=== PATIENT | female | born 1985 | race Caucasian/White ===

== ENCOUNTER 2016-10-02 22:08 | Observation (INO) | payer OTHER ==
[2016-10-02 22:53] LABS: ABSOLUTE IMMATURE GRANULOCYTES 0.19 10^3/uL (0.00-0.10); ADD DIFF? NO; ADD MORPH? NO; ADD SCAN? NO; ATYPICAL LYMPHOCYTE FLAG 0 (0-99); FRAGMENT RBC FLAG 50 (0-99); HEMATOCRIT 39.7 % (38.0-47.0); HEMOGLOBIN 13.5 g/dL (12.6-16.3); LEFT SHIFT FLG 10 (0-99); LIPEMIA HEMOLYSIS FLAG 90 (0-99); MEAN CELL HEMOGLOBIN 31.8 pg (27.9-34.1); MEAN CELL VOLUME 93.6 fL (81.5-99.8); MEAN PLATELET VOLUME 10.3 fL (8.7-11.7); PLATELET CLUMPS FLAG 20 (0-99); PLATELET COUNT 249 10^3/uL (150-400); RED BLOOD CELL COUNT 4.24 10^6/uL (4.18-5.33); RED CELL DISTRIBUTION WIDTH 12.9 % (11.5-15.2)
[2016-10-02 22:55] LABS: COLOR COLORLESS; LEUKOCYTE ESTERASE,URINE NEGATIVE (NEGATIVE); NITRITE,URINE NEGATIVE (NEGATIVE)
--- NOTE | 2016-10-03 12:57 | GCON ---
[f rep st] CONSULTATION DATE OF CONSULTATION: 10/03/2016 HISTORY OF PRESENT ILLNESS: The patient is a 31-year-old 1, para 0, who is 37 and 4/7 weeks ' gestation, who came in for decreased movement and right lower quadrant pain. Patient had be en feeling good movement the day before but had a very active day. She developed significant right lower quadrant pain and some right back pain. She states that it was constant and intense. She den ied any loss of fluid, vaginal bleeding, or nausea, vomiting, fevers, or chills. The pain was const ant, it was not coming and going. She had good movement. Patient was brought in for evaluati on. She had a negative urinalysis. heart tracing is appropriate for gestational age and clara gory 1. She was noted to have occasional contractions on the monitor which did resolve with p.o. hy dration. LABS: Her urinalysis was negative. Her white blood count was elevated at 19.4 but her hemoglobin w as 13.5, hematocrit was 39.7, and her platelets were 249. ASSESSMENT AND PLAN: I did manage the patient over the phone, I did not come in and evaluate the pa tient. The patient was given p.o. hydration. She was reassured by the status, and her pain i n the right lower quadrant had resolved. The nurse did pass along instructions to discuss round lig ament pain and appendicitis warning signs due to the elevated white count and precautions an d kick counts. Patient was instructed to follow up in our office as scheduled or sooner in the next week if indicated. If that pain increases or any fevers or chills develop or nausea, vomiting, or diarrhea, patient is to contact us. The patient was then discharged to home. /[id number]/MODL
== END 2016-10-02 23:29 | disposition home or self-care (01) ==
LOC: FLD 22:08
PROVIDERS: ADMIT Obstetrics & Gynecology; ATTEND Obstetrics & Gynecology
DX: O36.8130 Decreased fetal movements, third trimester, not applicable or unspecified (principal); O99.113 Other diseases of the blood and blood-forming organs and certain disorders involving the immune mechanism complicating pregnancy, third trimester; O26.893 Other specified pregnancy related conditions, third trimester; R10.31 Right lower quadrant pain; M54.9 Dorsalgia, unspecified; D72.829 Elevated white blood cell count, unspecified; Z3A.37 37 weeks gestation of pregnancy
CPT/HCPCS: G0378

== ENCOUNTER 2016-12-29 06:48 | Observation (INO) | payer OTHER ==
--- NOTE | 2016-12-29 14:23 | SOAPPROG ---
SOAP Progress Note Assessment/Plan: Assessment: [id number] with IUP@ 40-1 (L/6) no evidence of labor GBS+ Cat 1 FHR tracing Plan: d/c home at this time will return with increasing contractions FKC and labor prec discussed 12/29/16 14:19 Subjective: pt doing well, presents to L&D with complaints of contractions since 2199, she states she is having contractions q 4-5 min, but she is able to breathe and talk through them. She denies any LOF, VB. She reports +FM. Objective: Exam: VSS HEENT: normocephalic, atraumatic Abd: soft, nontender, nondistended, gravid Pelvic: CE, per Elia Frank CNM, -/ Extremities: trace edema, negative yoel's sign Neuro: grossly normal - Time Spent With Patient Time Spent With Patient: approx 45 min was spent with this pt; of that time approx 30 min was spent on direct counseling or coordination of care. - Pending Discharge Pending Discharge Within 24 Hours: No Physical Exam - Physical Exam General Appearance: WD/WN, alert, no apparent distress EENT: PERRL/EOMI Neck: non-tender, supple Abdomen: non-tender, soft Pelvic Exam: deferred Skin: normal color, warm/dry Extremities: non-tender Neuro/Psych: no motor/sensory deficits, alert, normal mood/affect, oriented x 3 ICD10 Worksheet Patient Problems: Problems Problem Status Onset Labor and delivery affected by breech presentation Acute Labor, false Acute - ICD10 Problem Qualifiers (1) Labor and delivery affected by breech presentation (2) Labor, false
== END 2016-12-29 07:49 | disposition home or self-care (01) ==
LOC: FLD 06:48
PROVIDERS: ADMIT Advanced Practice Midwife; ATTEND Obstetrics & Gynecology
DX: O47.03 False labor before 37 completed weeks of gestation, third trimester (principal); O99.824 Streptococcus B carrier state complicating childbirth; Z3A.40 40 weeks gestation of pregnancy
CPT/HCPCS: G0378

== ENCOUNTER 2016-12-29 21:13 | Inpatient (IN) | payer OTHER ==
[2016-12-29] MEDS ORDERED: TERBUTALINE SULFATE 1 MG/ML VIAL IV PRN (23:21)
[2016-12-29] MEDS ORDERED: OLIVE OIL 118 ML BTL MISC PRN (23:21)
[2016-12-29] MEDS ORDERED: EPSOM SALT 454 GM TP PRN (23:21)
[2016-12-29] MEDS ORDERED: OXYTOCIN 20 UNIT in LR 1,000 ML IV PRN (23:21)
[2016-12-29] MEDS ORDERED: LR 1,000 ML IV PRN (23:21)
[2016-12-29] MEDS ORDERED: IBUPROFEN 600 MG TAB PO PRN (23:21)
--- NOTE | 2016-12-29 23:21 | PDGENHP ---
History & Physical Chief Complaint: contractions since last night @ 2200 History of Present Illness: This is a 31yo with IUP@ 40-1wks that presents to L&D with c/o contractions since last night @ 2200. She reports having increasing pain with contractions, rating pain 6/10. She denies any LOF, VB. She reports +FM. She denies any headaches, visual changes, epigastric pain. Pertinent Past, Social, Family History: PMH: RA, h/o ITP (h/o blood transfusion) . Social: denies any alcohol, tobacco, or drug use. Surgical: oral surgery. Family: +heart disease, +HTN, +DM
[2016-12-29] MEDS ORDERED: PENICILLIN G POTASSIUM 5,000,000 UNIT in D5W 150 ML IV ONE (23:29)
--- NOTE | 2016-12-29 23:40 | PDGENHP ---
History and Physical - Chief Complaint Patient doing well, reports contractions since 2200 (12/28/16) - History of Present Illness This is a [id number] with IUP @ 40-1wks with complaints of contractions since last night at 2200. She states they have increased in intensity. She is now rating them 6/10. She denies any alleviating factors. She denies any LOF, VB. She reports +FM. She denies any headaches, visual changes, epigastric pain. History Information - Allergies/Home Medication List Allergies/Adverse Reactions: No Known Allergies Allergy (Unverified 10/02/16 22:19) Home Medications: Multi Tablet 1 tab PO DAILY 12/29/16 [Last Taken 12/29/16] I have personally reviewed and updated: family history, medical history, social history, surgical history - Past Medical History Additional medical history: RA - Surgical History Additional surgical history: oral surgery - Family History Positive for: cancer, diabetes type I, vascular disease, CAD, hypertension - Social History Smoking Status: Never smoked Alcohol Use: None Drug Use: None Review of Systems Review of Systems: ROS: 10pt was reviewed & negative except for what was stated in HPI & below Constitutional: Reports: no symptoms EENMT: Reports: no symptoms Cardiac: Reports: no symptoms Respiratory: Reports: no symptoms Gastrointestinal: Reports: no symptoms Genitourinary: Reports: no symptoms Muscolosketal: Reports: no symptoms Skin: Reports: no symptoms Neurological: Reports: no symptoms Hematologic/Lymphatic: Reports: no symptoms Physical Exam Physical Exam: Constitutional: no apparent distress, appears nourished Eyes: EOMI Ears, Nose, Mouth, Throat: moist mucous membranes, hearing normal, ears appear normal Cardiovascular: regular rate and rhythym, no murmur, rub, or gallop Respiratory: no respiratory distress, no rales or rhonchi, clear to auscultation Gastrointestinal: soft, non-tender abdomen Skin: warm, normal color Neurologic: AAOx3 Psychiatric: interacting appropriately, not anxious Assessment & Plan Assessment: [id number] with IUP@ 40-1wks Early labor GBS+ Cat 2 FHR tracing Plan: Admit to L&D pain management/HELEN (per pt request) IV/labs/fluid bolus/abx reassess post HELEN Dr Triana aware of FHR tracing
[2016-12-29] MEDS ORDERED: fentaNYL 2MCG/ML/BUP 0.1% RTU 100 ML BAG EP ONE (23:45)
[2016-12-29] MEDS ORDERED: PHENYLEPHRINE HCL 100 MCG/ML SYR ONE (23:46)
[2016-12-29] MEDS ORDERED: fentaNYL 100 MCG/2 ML INJ ONE (23:46)
[2016-12-29] MEDS ORDERED: BUPIVACAINE 0.25% 30 ML SDV ONE (23:46)
[2016-12-29 23:47] LABS: % IMMATURE GRANULYOCYTES 1.1 % (0.0-1.1); ABSOLUTE IMMATURE GRANULOCYTES 0.29 10^3/uL (0.00-0.10); ADD DIFF? NO; ADD MORPH? NO; ADD SCAN? NO; ATYPICAL LYMPHOCYTE FLAG 0 (0-99); FRAGMENT RBC FLAG 0 (0-99); HEMATOCRIT 43.9 % (38.0-47.0); HEMOGLOBIN 15.4 g/dL (12.6-16.3); LEFT SHIFT FLG 10 (0-99); LIPEMIA HEMOLYSIS FLAG 90 (0-99); MEAN CELL HEMOGLOBIN CONCENTR. 35.1 g/dL (32.4-36.7); MEAN PLATELET VOLUME 11.5 fL (8.7-11.7); PLATELET CLUMPS FLAG 10 (0-99); PLATELET COUNT 183 10^3/uL (150-400); RED BLOOD CELL COUNT 4.67 10^6/uL (4.18-5.33); RED CELL DISTRIBUTION WIDTH 13.2 % (11.5-15.2)
--- NOTE | 2016-12-30 01:09 | PREANESOB ---
Obstetric Pre-Anesthesia Info - General Info Proposed Procedure: Labor and delivery. : 1 Para: 0 WBD: 40 - Info Monitors: External FHR Pattern: Reassuring - Labor Status Cervical Dilation per last OB SVE: 2 PIH: No Indications for Labor Analgesia: Augmentation of Labor, Pain Control Labor Epidural: Proposed Anesthesia ROS: Rheumatoid arthritis. History of ITP. Prior general anesthesia. Allergies/Adverse Reactions: Allergy/AdvReac Type Severity Reaction Status Date / Time No Known Allergies Allergy Unverified 10/02/16 22:19 Home Medications: Medication Instructions Recorded Multi Tablet 1 tab PO DAILY 12/29/16 Visit Medications: Generic Name Dose Route Start Last Admin Trade Name Freq PRN Reason Stop Dose Admin Lactated Ringer's 1,000 mls @ 0 mls/hr 12/29/16 23:21 Lr IV 06/27/17 23:20 PRN PRN SEE PROTOCOL CONDITIONS Protocol Per Protocol Oxytocin 20 unit/ Lactated 1,002 mls @ 150 mls/hr 12/29/16 23:21 Ringer's IV PRN PRN Post- bleeding Penicillin G Potassium 2,500, 155 mls @ 155 mls/hr 12/30/16 03:30 000 unit/ Dextrose IV 01/29/17 03:29 Q4H JENNA Protocol Ibuprofen 600 mg 12/29/16 23:21 Motrin PO 06/27/17 23:20 Q6HRS PRN post , inflammation Magnesium Sulfate 454 gm 12/29/16 23:21 Epsom Salt TP 06/27/17 23:20 Q1H PRN perineal discomfort Sutton Oil 118 ml 12/29/16 23:21 Sweet Oil MISC 06/27/17 23:20 ONCE PRN perineal massage Terbutaline Sulfate 0.25 mg 12/29/16 23:21 Brethine IV 06/27/17 23:20 ONCE PRN Tachysystole Discontinued Medications Generic Name Dose Route Start Last Admin Trade Name Freq PRN Reason Stop Dose Admin Bupivacaine HCl Confirm 12/29/16 23:46 Sensorcaine 0.25% Sdv Administered 12/29/16 23:47 Dose 30 ml .ROUTE .STK-MED ONE Fentanyl Confirm 12/29/16 23:46 Sublimaze Administered 12/29/16 23:47 Dose 100 mcg .ROUTE .STK-MED ONE Fentanyl/Bupivacaine HCl Confirm 12/29/16 23:45 Fentanyl/Bupivacaine/Ns 2 Mcg/Ml 0.1% (Premix Administered 12/29/16 23:46 Dose 100 ml EP .STK-MED ONE Penicillin G Potassium 5,000, 160 mls @ 160 mls/hr 12/29/16 23:29 12/30/16 00 :00 000 unit/ Dextrose IV 12/30/16 00:28 160 mls ONCE ONE Administration Protocol Phenylephrine HCl Confirm 12/29/16 23:46 Neosynephrine Administered 12/29/16 23:47 Dose 1,000 mcg .ROUTE .STK-MED ONE - Anesthesia History Response to Local Anesthetics: Normal Anesthesia & Operative History: No Prior Problems Family Anesthesia History: Negative - Social History Substance Use/Abuse: Denies - Focused Exam Blood Pressure: 130/70 Heart Rate: 100 Height/Weight (Nursing): Height 170.18 cm Weight 86.183 kg Physical Exam: Within normal limits. ASA Status: II Labs: 12/29/16 23:15 - Plan Anesthetic Plan: HELEN Consent Signed and on Chart: Yes Patient/Guardian Understands and Agrees to Plan: Yes Urgent/Emergent Case: Ruth rivero completed preop but documented later for safe timely pt care
--- NOTE | 2016-12-30 01:11 | POSTANESTH ---
Post Anesthetic Evaluation Cardiovascular Status: Normal, Stable, Similar to Pre-Op Cond, Tx Over/Under Hydration Respiratory Status: Similar to Pre-op Cond. Level of Consciousness/Mental Status: Can Participate in Eval, Alert and Oriented Pain Control: Adequate, Prn Tx Ordered Nausea/Vomiting Control: Adequate, Prn Tx Ordered Complications Possibly Related to Anesthesia: None Noted
[2016-12-30] MEDS ORDERED: PHENYLEPHRINE HCL 100 MCG/ML SYR IVP PRN (01:13)
[2016-12-30] MEDS ORDERED: ONDANSETRON 4 MG/2 ML VIAL IVP PRN (01:13)
[2016-12-30 01:19] LABS: ALANINE AMINOTRANSFERASE 42 IU/L (9-52); ASPARTATE AMINOTRANSFERASE 54 IU/L (14-46); BILIRUBIN-CONJUGATED 0.4 mg/dL (0.0-0.5); BILIRUBIN-UNCONJUGATED 0.6 mg/dL (0.0-1.1); CREATININE 0.6 mg/dL (0.6-1.0); GLOMERULAR FILTRATION RATE > 60; LACTATE DEHYDROGENASE 1235 IU/L (313-618); SPECIMEN HEMOLYSIS 132; URIC ACID 3.6 mg/dL (2.5-6.8)
[2016-12-30] MEDS ORDERED: LR 500 ML IV SCH ×2 (01:30)
[2016-12-30] MEDS ORDERED: fentaNYL 4MCG/ML/BUP 0.0625% R 250 ML EP SCH (01:30)
[2016-12-30] MEDS ORDERED: fentaNYL 2MCG/ML/BUP 0.1% RTU 100 ML EP SCH (01:30)
[2016-12-30] MEDS ORDERED: PENICILLIN G POTASSIUM 2,500,000 UNIT in D5W 150 ML IV SCH (03:30)
--- NOTE | 2016-12-30 04:29 | OBPROG ---
Labor Progress Note Assessment/Plan: Assessment: [id number] with IUP@ 40-2wks Early labor Tachycardia, CAt 2 FHR Tracing suspect chorio GBS+ WBC 25 Plan: Called Dr Chuy Triana- aware of FHR tracing reassess PRN tylenol 650mg PO x 1 dose now cont IV fluids 12/30/16 04:18 12/30/16 06:44 Subjective/Intrapartum Course: 12/30/16 04:20 Pt doing well, resting; comfortable with HELEN; denies any pain Objective: 12/29/16 23:15 12/29/16 23:48 Patient ABO/Rh O POSITIVE 12/30/16 01:31 Uric Acid 3.6 mg/dL (2.5-6.8) 12/29/16 23:48 Total Bilirubin 1.0 mg/dL (0.1-1.4) 12/29/16 23:48 Conjugated Bilirubin 0.4 mg/dL (0.0-0.5) 12/29/16 23:48 Unconjugated Bilirubin 0.6 mg/dL (0.0-1.1) 12/29/16 23:48 AST 54 IU/L (14-46) H 12/29/16 23:48 ALT 42 IU/L (9-52) 12/29/16 23:48 Lactate Dehydrogenase 1235 IU/L (313-618) H 12/29/16 23:48 Temp Pulse Resp BP Pulse Ox 100 130/70 H 12/30/16 01:10 12/30/16 01:10 Oxytocin Orders Assessment - Pre-Induction/Augmentation Assessment Gestational Age: 40 week(s) and 1 day(s) ICD10 Worksheet Patient Problems: Problems Problem Status Onset Labor and delivery affected by breech presentation Acute Labor, false Acute
[2016-12-30] MEDS ORDERED: OXYTOCIN 10 UNIT/ML VIAL ONE (04:52)
[2016-12-30] MEDS ORDERED: MISOPROSTOL 200 MCG TAB ONE (04:54)
[2016-12-30] MEDS ORDERED: AMMONIA AROMATIC 1 EACH AMP IH ONE (04:54)
[2016-12-30] MEDS ORDERED: LIDOCAINE 1% 300 MG/30 ML SDV ONE (04:56)
[2016-12-30] MEDS: ACETAMINOPHEN 325 MG TAB PO PRN ×3 (04:58→23:45)
[2016-12-30] MEDS ORDERED: AMPICILLIN SODIUM 2 GM in NS 100 ML IV SCH ×2 (05:00→18:45)
[2016-12-30] MEDS ORDERED: GENTAMICIN PHARMACY TO DOSE MISC SCH (05:00)
[2016-12-30] MEDS ORDERED: OXYTOCIN 30 UNIT in LR 500 ML IV SCH (05:00)
--- NOTE | 2016-12-30 05:03 | OBPROG ---
Labor Progress Note Assessment/Plan: Assessment: 31 yo G1 @ 40.2 weeks with early labor and suspected IAI Plan: 12/30/16 04:59 Antipyretics, antibiotics, and augmentation initiated. Will consider CD if heart rate does not respond to meds, worsens or no cervical change. NICU has been notified. Subjective/Intrapartum Course: 12/30/16 04:20 Pt doing well, resting; comfortable with HELEN; denies any pain Objective: 12/29/16 23:15 12/29/16 23:48 Patient ABO/Rh O POSITIVE 12/30/16 01:31 Uric Acid 3.6 mg/dL (2.5-6.8) 12/29/16 23:48 Total Bilirubin 1.0 mg/dL (0.1-1.4) 12/29/16 23:48 Conjugated Bilirubin 0.4 mg/dL (0.0-0.5) 12/29/16 23:48 Unconjugated Bilirubin 0.6 mg/dL (0.0-1.1) 12/29/16 23:48 AST 54 IU/L (14-46) H 12/29/16 23:48 ALT 42 IU/L (9-52) 12/29/16 23:48 Lactate Dehydrogenase 1235 IU/L (313-618) H 12/29/16 23:48 Temp Pulse Resp BP Pulse Ox 100 130/70 H 12/30/16 01:10 12/30/16 01:10 Vitals: 99F, HR 120 Gen: NAD, AAOx3 Abdomen: soft, no fundal tenderness, S=D CE: (performed by Terri 45 min earlier) = 3/80/-2, SROM @ 2AM, clear fluid Extrem: no edema - SVE Dilation (cm): 3 Effacement (%): 80 Station: -2 Membranes: SROM Amniotic Fluid Color: Clear - FHR Assessment Tran FHR (bpm): 180 FHR Pattern Variability: Moderate FHR Category: 2 Oxytocin Orders Assessment - Pre-Induction/Augmentation Assessment Gestational Age: 40 week(s) and 1 day(s) ICD10 Worksheet Patient Problems: Problems Problem Status Onset Labor and delivery affected by breech presentation Acute Labor, false Acute
[2016-12-30] MEDS: AMPICILLIN SODIUM 2 GM in NS 100 ML IV SCH ×4 (05:21→21:00)
[2016-12-30] MEDS: D5W IV SCH (05:40)
[2016-12-30] MEDS: GENTAMICIN SULFATE IV SCH (05:40)
--- NOTE | 2016-12-30 06:19 | OBPROG ---
Labor Progress Note Assessment/Plan: Assessment: 31 yo G1 @ 40.2 weeks with early labor and suspected IAI Plan: 12/30/16 04:59 Antipyretics, antibiotics, and augmentation initiated. Will consider CD if heart rate does not respond to meds, worsens or no cervical change. NICU has been notified. 12/30/16 06:16 Continue Pitocin Augmentation and close monitoring of FHRT Subjective/Intrapartum Course: 12/30/16 04:20 Pt doing well, resting; comfortable with HELEN; denies any pain 12/30/16 06:16 Patient feels increased pressure s/p Pitocin augmentation. Objective: 12/29/16 23:15 12/29/16 23:48 Patient ABO/Rh O POSITIVE 12/30/16 01:31 Uric Acid 3.6 mg/dL (2.5-6.8) 12/29/16 23:48 Total Bilirubin 1.0 mg/dL (0.1-1.4) 12/29/16 23:48 Conjugated Bilirubin 0.4 mg/dL (0.0-0.5) 12/29/16 23:48 Unconjugated Bilirubin 0.6 mg/dL (0.0-1.1) 12/29/16 23:48 AST 54 IU/L (14-46) H 12/29/16 23:48 ALT 42 IU/L (9-52) 12/29/16 23:48 Lactate Dehydrogenase 1235 IU/L (313-618) H 12/29/16 23:48 Temp Pulse Resp BP Pulse Ox 100 130/70 H 12/30/16 01:10 12/30/16 01:10 CE: 9/100/+1, clear fluid, warm to touch - SVE Dilation (cm): 10 Effacement (%): 100 Station: +1 Membranes: SROM Amniotic Fluid Color: Clear - Contraction Pattern Assessment Current Contraction Pattern: Regular - FHR Assessment Tran FHR (bpm): 160 FHR Pattern Variability: Moderate FHR Category: 1 Oxytocin Orders Assessment - Pre-Induction/Augmentation Assessment Gestational Age: 40 week(s) and 1 day(s) ICD10 Worksheet Patient Problems: Problems Problem Status Onset Labor and delivery affected by breech presentation Acute Labor, false Acute
[2016-12-30] MEDS ORDERED: SIMETHICONE 80 MG TAB CHEW PO PRN (09:24)
[2016-12-30] MEDS ORDERED: HYDROCORTISONE 0.5% CREAM TP PRN (09:24)
[2016-12-30] MEDS ORDERED: HYDROCODONE/APAP 5/325 TAB PO PRN (09:24)
[2016-12-30 09:27] LABS: BASE EXCESS CORD -22.2 mEq/L (-13.6--3.2); CORD BLOOD PCO2 57.8 mmHg (37-60); PH ARTERIAL CORD BLOOD 6.99 (7.10-7.37)
[2016-12-30 09:30] LABS: PH VENOUS CORD BLOOD 7.06 (7.20-7.42)
--- NOTE | 2016-12-30 09:30 | OBDEL ---
Info Type: Vaginal Presentation at Delivery: Vertex L&D Analgesia/Anesthesia Type: Epidural GBS+: Yes Antibiotic Used for + GBS: Ampicillin Intrapartum Medications: Generic Name Dose Route Start Last Admin Trade Name Freq PRN Reason Stop Dose Admin Acetaminophen 325 - 650 mg 12/30/16 04:47 12/30/16 04:58 Tylenol PO 06/28/17 04:46 650 mg Q3HRS PRN Administration Pain, Mild Oxytocin 30 unit/ Lactated 503 mls @ 0 mls/hr 12/30/16 05:00 12/30/16 05:21 Ringer's IV 06/28/17 04:59 503 mls CONT JENNA Administration Protocol As Directed Ampicillin Sodium 2 gm/ Sodium 110 mls @ 220 mls/hr 12/30/16 05:00 12/30/16 05:21 Chloride IV 01/29/17 04:59 110 mls Q6H JENNA Administration Protocol Gentamicin Sulfate 430 mg/ 110.75 mls @ 110.75 mls/hr 12/30/16 05:00 05:40 Dextrose IV 01/29/17 04:59 110.75 mls Q24H JENNA Administration Discontinued Medications Generic Name Dose Route Start Last Admin Trade Name Frejusto PRN Reason Stop Dose Admin Penicillin G Potassium 5,000, 160 mls @ 160 mls/hr 12/29/16 23:29 12/30/16 00 :00 000 unit/ Dextrose IV 12/30/16 00:28 160 mls ONCE ONE Administration Protocol Penicillin G Potassium 2,500, 155 mls @ 155 mls/hr 12/30/16 03:30 12/30/16 04 :36 000 unit/ Dextrose IV 01/29/17 03:29 155 mls Q4H JENNA Administration Protocol - 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: Carla Baptiste - Hospital Course Intrapartum: 12/30/16 04:20 Pt doing well, resting; comfortable with HELEN; denies any pain Indications for Delivery: Spontaneous Labor Vaginal Delivery - Delivery Provider Delivery Physician/CNM: Apryl Ochoa - Labor and Delivery Onset of Contractions Date: 12/29/16 Onset of Contractions Time: 17:00 Onset of Contractions Type: Augmented Rupture of Membranes Date: 12/30/16 Rupture of Membranes Time: 02:00 Rupture of Membranes Type: Spontaneous Amniotic Fluid Color: Clear, Thick Meconium Dilation Complete Date: 12/30/16 Dilation Complete Time: 07:00 Placenta Delivery Date: 12/30/16 Placenta Delivery Time: 09:05 Total Hours of Labor: 16 Laceration: 1st Degree Repair: 3-0, Vicryl Vaginal Sponge Count Correct: Yes Vaginal Needle Count Correct: Yes Vaginal Sweep Performed: No EBL: 200 Delivery Events: Other (Specify) (chorioamnionits, treated with Ampicillin and Gentamycin) - Medications Labor Augmentation/Induction Methods Used: Pitocin Labor Augmentation/Induction Indication: Contraction Strength Inadequate, Other (Specify) (chorio) Data Tran Delivery Date: 12/30/16 Delivery Time: 09:00 BENJAMÍN: 12/28/16 Gestational Age: 40 week(s) and 2 day(s) Sex of : Male Score (1 Min): 3 Score (5 Min): 7 ICD10 Worksheet Patient Problems: Problems Problem Status Onset Chorioamnionitis Acute (spontaneous vaginal delivery) Acute Labor and delivery affected by breech presentation Acute Labor, false Acute - ICD10 Problem Qualifiers (1) Chorioamnionitis Qualifiers: Fetus number: single or unspecified fetus Trimester: third trimester Qualified Code(s): O41.1230 - Chorioamnionitis, third trimester, not applicable or unspecified (2) (spontaneous vaginal delivery)
[2016-12-31] MEDS: AMPICILLIN SODIUM 2 GM in NS 100 ML IV SCH ×2 (01:13→07:19)
[2016-12-31] MEDS: GENTAMICIN SULFATE IV SCH (05:34)
[2016-12-31] MEDS: D5W IV SCH (05:34)
[2016-12-31 06:38] LABS: ADD DIFF? YES; ADD MORPH? NO; ADD SCAN? NO; ATYPICAL LYMPHOCYTE FLAG 0 (0-99); FRAGMENT RBC FLAG 0 (0-99); HEMATOCRIT 38.3 % (38.0-47.0); HEMOGLOBIN 12.8 g/dL (12.6-16.3); LEFT SHIFT FLG 20 (0-99); LIPEMIA HEMOLYSIS FLAG 80 (0-99); MEAN CELL HEMOGLOBIN 31.8 pg (27.9-34.1); MEAN CELL HEMOGLOBIN CONCENTR. 33.4 g/dL (32.4-36.7); MEAN PLATELET VOLUME 10.9 fL (8.7-11.7); PLATELET CLUMPS FLAG 0 (0-99); PLATELET COUNT 179 10^3/uL (150-400); RED BLOOD CELL COUNT 4.03 10^6/uL (4.18-5.33); RED CELL DISTRIBUTION WIDTH 13.6 % (11.5-15.2)
[2016-12-31] MEDS: ACETAMINOPHEN 325 MG TAB PO PRN ×4 (07:18→22:15)
[2016-12-31 07:24] LABS: PLATELET ESTIMATE ADEQUATE (ADEQ); TOXIC GRANULATION PRESENT
--- NOTE | 2016-12-31 08:22 | OBPP ---
Progress Note Assessment/Plan: Assessment: [id number] s/p , PPD#1 Chorioamnionitis Plan: d/c abx today routine PP care ambulate/pericare work with re: pumping (baby in NICU) plan d/c in 2-3 days 12/30/16 04:18 12/30/16 06:44 12/31/16 08:18 Subjective/ Course: 12/31/16 08:23 pt doing well, reports min pain/cramps denies any heavy bleeding she is pumping for stimulation- baby in NICU Objective: 12/31/16 06:20 12/29/16 23:48 Patient ABO/Rh O POSITIVE 12/30/16 01:31 Uric Acid 3.6 mg/dL (2.5-6.8) 12/29/16 23:48 Total Bilirubin 1.0 mg/dL (0.1-1.4) 12/29/16 23:48 Conjugated Bilirubin 0.4 mg/dL (0.0-0.5) 12/29/16 23:48 Unconjugated Bilirubin 0.6 mg/dL (0.0-1.1) 12/29/16 23:48 AST 54 IU/L (14-46) H 12/29/16 23:48 ALT 42 IU/L (9-52) 12/29/16 23:48 Lactate Dehydrogenase 1235 IU/L (313-618) H 12/29/16 23:48 Temp Pulse Resp BP Pulse Ox 36.6 C 86 16 126/78 H 98 12/30/16 20:40 12/30/16 20:40 12/30/16 20:40 12/30/16 20:40 12/30/16 20:40 Exam: VSS Constitutional: WNWF, A&O x 3 HEENT: normocephalic, atraumatic Chest: RRR, no murmur Pulm: CTA-B Abd: soft, nontender Uterus: firm @U-1 lochia: min rubra extremities: trace edema, negative yoel's neuro: grossly normal Uterine Position/Fundal Height: Umbilicus -1, Midline Uterine Tone: Firm
[2016-12-31] MEDS: DOCUSATE SODIUM 100 MG CAP PO PRN ×2 (13:59→22:17)
[2016-12-31 21:56] VITALS: RESP 18; TEMP 97.2
[2017-01-01] MEDS: ACETAMINOPHEN 325 MG TAB PO PRN (02:21)
[2017-01-01 11:32] VITALS: BP 114/75; PULSE 82; O2SAT 98
--- NOTE | 2017-01-01 12:26 | OBGCSDC ---
General Delivery Information - General Info : 1 Para: 1 Abortions: 0 Type: Vaginal L&D Analgesia/Anesthesia Type: Epidural Admission Date: 12/29/16 Labs: Patient ABO/Rh O POSITIVE 12/30/16 01:31 Hct 38.3 % (38.0-47.0) 12/31/16 06:20 - Hospital Course Intrapartum: 12/30/16 04:20 Pt doing well, resting; comfortable with HELEN; denies any pain : 12/31/16 08:23 pt doing well, reports min pain/cramps denies any heavy bleeding she is pumping for stimulation- baby in NICU 01/01/17 12:21 DISCHARGE SUMMARY S) Pt doing well; denies any pain or heavy bleeding; baby in NICU, but improving. She is now able to breastfeed . She reports min milk/ colostrum. She is ambulating well, without difficulty. O) VSS Exam: Constitutional: WNWF, A&Ox3 HEENT: normocephalic, atraumatic Heart: RRR, no murmur Chest: CTA-B Abdomen: soft, nontender, nondistended Uterus: firm @U-1 lochia: min rubra perineum: healing well, sutures intact extremities: WNL, trace edema, negative yoel's sign neuro: grossly normal A) [id number] s/p chorioamnionitis- treated abx x 24 hours 1st degree perineal laceration baby in NICU P) d/c home/to "boarder" status, pt will stay with baby in NICU routine PP care pelvic rest x 6 weeks cont to work with for support cont to increase po hydration bleeding and infection prec discussed RTO in 4 weeks 01/01/17 12:26 Vaginal - Delivery Provider Delivery Physician/CNM: Apryl Ochoa - Diagnosis Labor: Augmented Rupture of Membranes Type: Spontaneous Amniotic Fluid Color: Clear, Thick Meconium Laceration: 1st Degree Repair: 3-0, Vicryl Delivery Events: Other (Specify) (chorioamnionits, treated with Ampicillin and Gentamycin) - Delivery EBL: 200 Data Tran Delivery Date: 12/30/16 Delivery Time: 09:00 BENJAMÍN: 12/28/16 Gestational Age: 40 week(s) and 4 day(s) Sex of Infant: Male [place] Weight (gm): 3132 kg Score (1 Min): 3 Score (5 Min): 7 Discharge Information - Discharge Information Prescriptions: Ibuprofen [Motrin (*)] 600 mg PO Q6HRS PRN #30 tab PRN Reason: post , inflammation Condition: Good Instruction/Follow Up: Four Weeks
[2017-01-01] MEDS: DOCUSATE SODIUM 100 MG CAP PO PRN (15:11)
== END 2017-01-01 18:00 | disposition home or self-care (01) | DRG 775 ==
LOC: OBSVTOIN 21:13 → FLD 21:13 → FOB 12-30 11:52
PROVIDERS: ADMIT Advanced Practice Midwife; ATTEND Advanced Practice Midwife
DX: O99.824 Streptococcus B carrier state complicating childbirth (principal); O41.1230 Chorioamnionitis, third trimester, not applicable or unspecified; Z37.0 Single live birth; O76 Abnormality in fetal heart rate and rhythm complicating labor and delivery; O70.0 First degree perineal laceration during delivery; Z3A.40 40 weeks gestation of pregnancy
CPT/HCPCS: J0290; J2370; J2540; J3010; J3105